=== PATIENT | male | born 1975 | race Caucasian/White ===

== ENCOUNTER 2023-11-04 11:03 | Emergency (ER) | payer OTHER, SELFPAY ==
--- NOTE | ~2023-11-04 | US_ITS ---
EXAMINATION: US venous doppler [facility] DATE: 11/04/2023 11:29 INDICATION: Left lower limb pain and swelling TECHNIQUE: Grayscale ultrasound images without and with compression and Doppler ultrasound images of the left lower extremity veins were obtained. COMPARISON: None. FINDINGS: The visualized portions of left common femoral vein, profunda (deep) femoral vein, femoral vein, popl iteal vein, peroneal veins, posterior tibial veins, gastrocnemius vein and greater saphenous vein out flow are patent. IMPRESSION: 1. No deep venous thrombosis in the left lower limb. Reviewed, dictated and finalized at location B.
[2023-11-04 11:10] VITALS: BP 123/99; PULSE 63; RESP 16; TEMP 36.6; O2SAT 98
--- NOTE | 2023-11-04 11:21 | PC.NURSE ---
US at bedside
--- NOTE | 2023-11-04 12:32 | ED.LOWEXIN ---
HPI - Extremity Injury (Lower) General Chief Complaint: Extremity Injury, Lower Stated Complaint: LLE pain Time Seen by Provider: 11/04/23 11:39 Source: patient, RN notes reviewed and old records reviewed Mode of arrival: ambulatory Limitations: no limitations History of Present Illness HPI Narrative: This is a 48 year old male who presents for evaluation of left leg swelling. He states he injured his left knee last week. He had significant swelling and pain to his knee. He noticed a day or 2 later that his lower leg became swollen and bruised. He went to see an orthopedic surgeon today for evaluation of his knee injury. He received a steroid joint injection and it was recommended for him to come to ER for rule out DVT to left lower leg. He denies history of DVT or PE. He denies chest pain, shortness of breath. Related Data Allergies Allergy/AdvReac Type Severity Reaction Status Date / Time No Known Allergies Allergy Unverified 01/15/17 14:14 Review of Systems Constitutional: Constitutional: Denies weakness Cardiovascular: Cardiovascular: Denies syncope, Denies rapid heart rate, Denies irregular heart rhythm, Denies leg edema and Denies dyspnea Respiratory: Respiratory: Denies chest congestion, Denies hemoptysis, Denies excessive phlegm production and Denies dyspnea Gastrointestinal: Gastrointestinal: Denies abdominal pain, Denies hematochezia, Denies diarrhea and Denies vomiting Genitourinary: Genitourinary: Denies hematuria, Denies dysuria, Denies penile discharge and Denies testicular pain Musculoskeletal: Musculoskeletal: Reports arthralgias, Denies joint swelling, Denies loss of height and Denies muscle weakness Neurologic: Denies syncope, Denies focal weakness and Denies weakness PMFSH Past Medical History Medical History (Updated 11/04/23 @ 12:38 by Kaelyn Camargo MD) No significant medical problems Surgical History Surgical History (Updated 11/04/23 @ 12:33 by Kaelyn Camargo MD) History of appendectomy Social History Social History (Updated 11/04/23 @ 12:33 by Kaelyn Camargo MD) Smoking status: Never smoker Exam Const: General: no acute distress and alert Nutritional Appearance: well nourished Orientation/consciousness: patient oriented x3 HENMT: Head: normal to inspection Chest: Chest palpation & inspection: normal inspection of the chest Resp: Effort & Inspection: normal respiratory effort Skin: General skin exam: normal color Rashes: no rashes Wounds: no wounds Neuro: General: patient oriented x3, moves all extremities and CN's II-XI intact bilaterally Extrem: Other: mild left ankle swelling, no calf tenderness. no discoloration. DP +2 Psych: Mental Status: mental status grossly normal Affect: normal affect Attitude: cooperative Course Reevaluation(s) Reevaluation #1: I reviewed with patient doppler is negative. He denies any other complaints or concerns. Date: 11/04/23 Time: 12:36 Vital Signs Vital signs: Vital Signs Temperature 97.9 F 11/04/23 11:10 Pulse Rate 63 11/04/23 11:10 Respiratory Rate 16 11/04/23 11:10 Blood Pressure 123/99 H 11/04/23 11:10 Pulse Oximetry 98 11/04/23 11:10 Temperature 97.9 F 11/04/23 11:10 Pulse Rate 68 11/04/23 12:42 Respiratory Rate 18 11/04/23 12:42 Blood Pressure 130/88 11/04/23 12:42 Pulse Oximetry 100 11/04/23 12:42 MDM - Extremity Injury (Lower) Differential Diagnosis Differential diagnosis: Likely ankle sprain and strain, acute internal derangement of knee and other (DVT, contusion, edema, venous insufficiency) Medical Records Attestation: I reviewed the patient's medical records. Imaging Data Radiologist's impression: ITS Impressions Venous Doppler Study 11/04/23 11:34 IMPRESSION: 1. No deep venous thrombosis in the left lower limb. Discharge Plan Discharge Clinical Impression: Left leg swelling Patient Disposition: Home, [facility]
[2023-11-04 12:42] VITALS: BP 130/88; PULSE 68; RESP 18; O2SAT 100
== END 2023-11-04 12:43 | disposition home or self-care (01) ==
PROVIDERS: Emergency Provider General Practice
DX: R22.42 Localized swelling, mass and lump, left lower limb (principal)
CPT/HCPCS: 93971; 99284